=== PATIENT | female | born 1960 ===

== ENCOUNTER → 2021-10-31 13:44 | Outpatient (CLI) | payer SELFPAY ==
--- NOTE | ~2021-10-31 | XR_ITS ---
EXAM: XR wrist RT min 3V, XR forearm RT 2V DATE: 10/31/2021 14:44 HISTORY: Right wrist pain . COMPARISON: None available. FINDINGS: Decreased mineralization. Transverse minimally comminuted fracture of the distal right rad ius, with mild dorsal angulation and possible extension of fracture lines to the radial carpal joint. Minimally displaced ulnar styloid fracture. Scattered degenerative changes, severe at the third MCP. Soft tissue swelling at the wrist. IMPRESSION: Transverse, likely intra-articular fracture of the distal right radius, with mild dorsal angulation. Ulnar styloid fracture. Reviewed, dictated and finalized at location K. IMPRESSION: Transverse, likely intra-articular fracture of the distal right rad ius, with mild dorsal angulation. Ulnar styloid fracture.
== END ==
DX: S52.571A Other intraarticular fracture of lower end of right radius, initial encounter for closed fracture (principal); S52.611A Displaced fracture of right ulna styloid process, initial encounter for closed fracture; X58.XXXA Exposure to other specified factors, initial encounter
CPT/HCPCS: 73090; 73110